=== PATIENT | male | born 1985 | race Caucasian/White ===

== ENCOUNTER 2016-11-23 13:43 | Emergency (ER) | payer OTHER ==
[~2016-11-23] VITALS: Ht 177.8 cm; Wt 92.1 kg
[2016-11-23 15:43] VITALS: BP 130/88
== END 2016-11-23 15:43 | disposition home or self-care (01) ==
LOC: EME 13:43
DX: M67.431 Ganglion, right wrist (principal)
CPT/HCPCS: 99281; 99283